=== PATIENT | male | born 1970 | race Caucasian/White ===

== ENCOUNTER 2017-02-15 23:07 | Emergency (ER) | payer BC ==
[2017-02-15] MEDS ORDERED: LIDOCAINE 1% 10 ML VIAL INJ ONE (23:09)
[2017-02-15] MEDS ORDERED: TETANUS,DIPHTHERIA,PERTUSSIS 1 EA SYG IM ONE (23:27)
[2017-02-15] MEDS ORDERED: SULFA/TRIMETH 800/160 (DS) TAB 1 EA TAB PO ONE (23:27)
[2017-02-15 23:30] VITALS: BP 158/85; TEMP 96.8; O2SAT 96
--- NOTE | 2017-02-15 23:31 | ED.PDOC ---
History of Present Illness - General Chief Complaint: Skin/Abrasion/Tear Stated Complaint: fishhook to left hand Time Seen by Provider: 02/15/17 23:27 Source: patient Exam Limitations: no limitations - History of Present Illness Initial Comments: the patient is a 46-year-old male presenting to the emergency room secondary to a fishhook embedded in the base of the palmar aspect of the second digit of the left handsince immediately prior to arrival. He is not up-to-date on his tetanus. No allergies. No other injuries. Timing/Duration: momentarily Severity: moderate Improving Factors: nothing Worsening Factors: nothing Allergies/Adverse Reactions: Allergies NO KNOWN ALLERGY Allergy (Verified 02/15/17 23:27) Home Medications: Ambulatory Orders Sulfa/Trimeth 800/160 (Ds) Tab [Bactrim DS Tab] 1 ea PO BID #7 tab 02/15/17 Review of Systems - Review of Systems Constitutional: States: no symptoms reported EENTM: States: no symptoms reported Respiratory: States: no symptoms reported Cardiology: States: no symptoms reported Gastrointestinal/Abdominal: States: no symptoms reported Genitourinary: States: no symptoms reported Musculoskeletal: States: no symptoms reported Skin: States: see HPI Endocrine: States: no symptoms reported Past Medical History (General) - Patient Medical History Hx Seizures: No Hx Stroke: No Hx Dementia: No Hx Asthma: No Hx of COPD: No Hx Cardiac Disorders: No Hx Congestive Heart Failure: No Hx Pacemaker: No Hx Hypertension: No Hx Thyroid Disease: No Hx Diabetes: No Hx Gastroesophageal Reflux: No Hx Renal Disease: No Hx Cancer: No Hx of HIV: No Hx Hepatitis C: No Hx MRSA: No Surgical History: appendectomy - Vaccination History Hx Tetanus, Diphtheria Vaccination: No Immunizations Up to Date: No - Social History Hx Tobacco Use: No Hx Chewing Tobacco Use: No Hx Alcohol Use: Yes - social Hx Substance Use Treatment: No Feels Threatened In Home Enviroment: No Feels Threatened In a Relationship: No Hx Physical Abuse: No Hx Emotional Abuse: No Hx Suspected Abuse: No Family Medical History - Family History Mother Family History: Unknown Physical Exam - Physical Exam General Appearance: Alert, Comfortable, No apparent distress Eye Exam: bilateral normal Ears, Nose, Throat: hearing grossly normal Neck: full range of motion Respiratory: no respiratory distress, no accessory muscle use Cardiovascular/Chest: normal peripheral pulses, no edema Peripheral Pulses: radial,right: 2+, radial,left: 2+ Rectal Exam: deferred Extremity: normal range of motion, no pedal edema, normal capillary refill 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 1% lidocaine 1 cc was used for local anesthetic. Risks and benefits were explained prior. the fish hook was backed out. Wound was irrigated with water. Bactrim was given. Tetanus shot was given. He'll be placed on 3 days of Bactrim. ER warnings are given for any evidence of infection. Departure - Departure Clinical Impression: Nettie injury to finger Qualifiers: Encounter type: initial encounter Laterality: left Qualified Code(s): S69.92XA - Unspecified injury of left wrist, hand and finger(s), initial encounter Disposition: Discharge to Home or Self Care Condition: Fair Departure Forms: ED Discharge - Pt. Copy, Patient Portal Self Enrollment Instructions: DI for Puncture Wound Diet: regular diet Activity: increase activity as tolerated Prescriptions: Sulfa/Trimeth 800/160 (Ds) Tab [Bactrim DS Tab] 1 ea PO BID #7 tab Home Medications: Ambulatory Orders Sulfa/Trimeth 800/160 (Ds) Tab [Bactrim DS Tab] 1 ea PO BID #7 tab 02/15/17 Additional Instructions: the patient is a 46-year-old male presenting with a fishhook in the base of the second digit of the left hand. 1% lidocaine 1 cc was used for local anesthetic. Risks and benefits were explained prior. the fish hook was backed out. Wound was irrigated with water. Bactrim was given. Tetanus shot was given. He'll be placed on 3 days of Bactrim. ER warnings are given for any evidence of infection.
== END 2017-02-15 23:43 | disposition home or self-care (01) ==
LOC: EDSEX 23:07 → ER 23:07
DX: S60.552A Superficial foreign body of left hand, initial encounter (principal); Z23 Encounter for immunization; X58.XXXA Exposure to other specified factors, initial encounter; Y92.9 Unspecified place or not applicable